=== PATIENT | female | born 1990 | race Caucasian/White ===

== ENCOUNTER 2016-07-29 11:47 | Emergency (ER) | payer OTHER, SELFPAY ==
[2016-07-29] MEDS ORDERED: Oseltamivir 75 MG CAP ONE (12:52)
--- NOTE | 2016-07-29 13:04 | ERRECORD ---
[facility] EMERGENCY RECORD HPI FLU-LIKE SYNDROME (12:14 JPIP) CHIEF COMPLAINT: Patient presents for evaluation of body aches, Patient presents for evaluation of fatigue, Patient presents for evaluation of fever, Patient presents for evaluation of upper respiratory infection. HISTORIAN: History provided by patient. LOCATION: Symptoms are generalized. QUALITY: Pain is dull in nature, described as aching. SEVERITY: Current severity of pain rated as 6/10. TIME COURSE: Sudden onset of symptoms, 2, days ago, There has been no change in the patient's symptoms over time, are constant. ASSOCIATED WITH: Associated with cough, No associated vomiting, son was recently diagnosed with flu. EXACERBATED BY: Patient's condition exacerbated by nothing. RELIEVED BY: Patient's condition relieved by nothing. IMMUNIZATION STATUS: Flu vaccine not up to date. ROS (12:15 JPIP) CONSTITUTIONAL: Historian reports chills, reports fatigue, reports fever, reports malaise. ENT: Historian reports rhinorrhea. CARDIOVASCULAR: Historian reports chest pain, pleuritic. RESPIRATORY: Historian reports cough, denies shortness of breath, denies wheezing. GENITOURINARY FEMALE: Historian reports . MUSCULOSKELETAL: Historian reports myalgias. SKIN: Historian denies rash, denies skin changes, denies skin lesions. NEUROLOGIC: Historian denies lethargy, denies mental status changes. NOTES: All systems reviewed, negative except as described above. PAST MEDICAL HISTORY MEDICAL HISTORY: No past medical history, Flu vaccine not up to date, Tetanus immunization up to date, Pneumococcal vaccine not up to date. (12:01 KMOR) FEMALE SURGICAL HISTORY: Patient has no surgical history,. (12:01 KMOR) PSYCHIATRIC HISTORY: No previous psychiatric history. (12:01 KMOR) SOCIAL HISTORY: Patient denies alcohol use, Patient denies drug use, Patient currently uses tobacco, smokes cigarettes, daily, Patient smokes 1/2 pack per day. (12:01 KMOR) NOTES: Nursing records reviewed, Medication list reviewed. (12:17 JPIP) KNOWN ALLERGIES morphine: Reaction: Hives &a-1R&a+25V*p+0X*v4992C*c202B*c15G*c2P*p-0X&a-25V&a+1R Name: Ronny Caballero : 1990 F26 MedRec: [id number] AcctNum: [id number] Prepared: ThuJul 29, 2016 13:01 by Interface Page 1 of 3 pMD [facility] EMERGENCY RECORD Penicillins CURRENT MEDICATIONS (12:23 KMOR) : TABLET : Strength - 28 mg iron-800 mcg : ORAL Patient Dose: Unknown. VITAL SIGNS (11:59 KMOR) VITAL SIGNS: BP: 126/61, Pulse: 93, Resp: 18, Temp: 98.5 (Oral), Pain: 6, O2 sat: 99 on Room Air, Time: 07/29/2016 11:59. PHYSICAL EXAM (12:16 JPIP) CONSTITUTIONAL: Vital signs reviewed, Patient afebrile, Pulse normal, Blood pressure normal, Respiratory rate normal, Patient appears, ill appearing, Patient alert and oriented to person, place and time. HEAD: Head exam included findings of head atraumatic, normocephalic. EYES: Eye exam included findings of eyelids normal to inspection, Conjunctiva normal, Sclera normal, no periorbital ecchymosis, no periorbital edema, no periorbital erythema. ENT: Ear exam normal, external ear normal, tympanic membranes normal, no foreign body, no drainage, no bleeding, Pharynx exam normal, not injected, no swelling, symmetrical, Uvula exam normal, midline, no edema, Mouth exam normal, mucous membranes moist. NECK: Neck exam included findings of normal range of motion, Trachea midline, no cervical adenopathy, no tenderness. RESPIRATORY CHEST: Respiratory exam included findings of no respiratory distress, Breath sounds clear, No wheezing, No rales, No rhonchi, Breath sounds not absent, Breath sounds not diminished. CARDIOVASCULAR: Cardiovascular exam included findings of heart rate regular rate and rhythm, Heart sounds normal. UPPER EXTREMITY: Upper extremity exam included findings of inspection normal, Range of motion normal. NEURO: [place] coma scale 15, Neuro exam findings include patient oriented to person, place and time, no focal motor deficits. SKIN: Skin exam included findings of skin warm, dry, and normal in color. LYMPHATIC: Lymphatic exam included findings of cervical nodes normal, Submandibular normal. PSYCHIATRIC: Normal affect. MEDICATION ADMINISTRATION SUMMARY Drug Name: Tamiflu, Dose Ordered: 75 mg, Route: Oral, Status: Given, Time: 12:50 07/29/2016, Detailed record available in Medication Service section. DOCTOR NOTES (12:45 JPIP) TEXT: Lab reported the flu swab as negative, however I &a-1R&a+25V*p+0X*m9970A*c202B*c15G*c2P*p-0X&a-25V&a+1R Name: Ronny Caballero : 1990 F26 MedRec: [id number] AcctNum: [id number] Prepared: ThuJul 29, 2016 13:01 by Interface Page 2 of 3 pMD [facility] EMERGENCY RECORD disagree with this. clinically patient has the flu. will treat as such. PROBLEM LIST No recorded problems DIAGNOSIS (12:51 JPIP) FINAL: PRIMARY: influenza. PRESCRIPTION (12:29 JPIP) Tamiflu: CAPSULE (HARD, SOFT, ETC.) : 75 mg : ORAL : Quantity: 1 Unit: cap(s) Route: ORAL Schedule: 2 times a day (before meals) Dispense: 10 May substitute. Refills: No Refills . NOTES: No refills. DISPOSITION PATIENT: Disposition Type: Discharge, Disposition: *Discharge Home, Condition: Good. (12:51 JPIP) Patient left the department. (12:57 KMOR) Fish: BEVERLY=DO Escalera Joseph KMOR=JAKE Crane, Karrie &a-1R&a+25V*p+0X*[id number]*c202B*c15G*c2P*p-0X&a-25V&a+1R Name: Ronny Caballero : 1990 F26 MedRec: [id number] AcctNum: [id number] Prepared: ThuJul 29, 2016 13:01 by Interface Page 3 of 3 pMD MTDD
--- NOTE | 2016-07-29 13:15 | PICIS ---
[facility] EMERGENCY RECORD TRIAGE (ThuJul 29, 2016 11:58 KMOR) TRIAGE NOTES: fever, body aches, cough x2 days, child at home flu positive. (ThuJul 29, 2016 11:58 KMOR) PATIENT: NAME: Ronny Caballero, AGE: 26, GENDER: female, : Thu1990, TIME OF GREET: ThuJul 29, 2016 11:47, PREFERRED LANGUAGE: Icelandic, ETHNICITY: Not or , ECODE BILLING MAP: [facility], SSN: [id number], Zip Code: [address], KG WEIGHT: 67.13, PHONE: , , , PERSON ID: [id number], PCP: MARISA Beck Kimberly. (ThuJul 29, 2016 11:58 KMOR) PAYMENT: [place] [employer]. (12:01) COMPLAINT: FLU LIKE SYMPTOMS. (ThuJul 29, 2016 11:58 KMOR) ADMISSION: URGENCY: 4 Non Urgent, [facility] SOURCE[facility], TRANSPORT: CAR, BED: ER -03. (ThuJul 29, 2016 11:58 KMOR) ASSESSMENT: Assessment: A&OX4. RR EVEN AND UNLABORED., Symptoms began 2 days ago. (12:01 KMOR) PAIN: Patient complains of pain described as, aching, on a scale 0-10 patient rates pain as 6, Location GENERALIZED. (12:01 KMOR) SIRS SCORING: Heart Rate 55-109 (0), Temp range 96.8-101.1 (0), respiratory rate 12-24 (0), Mental Status altered: no (0), Infection or Suspected Infection: No. (12:01 KMOR) TRIAGE SCREENING: Patient denies suicidal ideation, Patient denies presence of domestic violence. (12:01 KMOR) LMP: Last menstrual period: 02/21/2016, Estimated conception 03/06/2016, Estimated due date 11/27/2016, Estimated age 22 weeks, 5 days, , P: 5, AB: 0. (12:01 KMOR) PROVIDERS: TRIAGE NURSE: Karrie Crane RN. (ThuJul 29, 2016 11:58 KMOR) VITAL SIGNS: BP 126/61, Pulse 93, Resp 18, Temp 98.5, (Oral), Pain 6, O2 Sat 99, on Room Air, Time 07/29/2016 11:59. (11:59 KMOR) PREVIOUS VISIT ALLERGIES: morphine, Penicillins. (ThuJul 29, 2016 11:58 KMOR) morphine, Penicillins. (12:01 KMOR) KNOWN ALLERGIES morphine: Reaction: Hives Penicillins CURRENT MEDICATIONS (12:23 KMOR) : TABLET : Strength - 28 mg iron-800 mcg : ORAL Patient Dose: Unknown. VITAL SIGNS (11:59 KMOR) VITAL SIGNS: BP: 126/61, Pulse: 93, Resp: 18, Temp: 98.5 (Oral), Pain: 6, O2 sat: 99 on Room Air, Time: 07/29/2016 11:59. NURSING ASSESSMENT: ENT (12:21 KMOR) CONSTITUTIONAL: Patient arrives ambulatory, Gait steady, History &a-1R&a+25V*p+0X*j0518C*c202B*c15G*c2P*p-0X&a-25V&a+1R Name: Ronny Caballero : 1990 F26 MedRec: [id number] AcctNum: [id number] Prepared: ThuJul 29, 2016 13:09 by Interface Page 1 of 5 pMD [facility] EMERGENCY RECORD obtained from patient, Patient appears comfortable, Patient cooperative, Patient alert, Oriented to person, place and time, Skin warm, Skin dry, Skin normal in color, Mucous membranes pink, Mucous membranes moist, Patient is well-groomed, Patient complains of Flu like symptoms, Patient reports bodyaches, congestion, fever, and sore throat x 3 days, Reports child at home sick with flu. PAIN: aching pain, generalized, on a scale 0-10 patient rates pain as 6. ENT: Ear assessment findings include ear normal to inspection, Nasal assessment findings include nose normal to inspection, Sinuses normal, Nasal mucosa normal, Discharge, thick, from bilateral nare, Congestion, bilaterally, Mouth and throat assessment findings include mouth inspection normal, Uvula normal, Tonsils normal, Mucous membranes pink, and moist, Able to swallow, Speech normal, Associated with fever, Maximum temperature (degree F) 103, orally. RESPIRATORY/CHEST: Breath sounds clear, Respiratory assessment findings include respiratory effort easy, Respirations regular, Conversing normally, Neck and chest exam findings include trachea midline, Chest expansion equal, Chest movement symmetrical, no signs of distress, Associated with cough, loose, Associated with fever, Maximum temperature 103, oral. NOTES: Patient tolerated procedure well. NURSING PROCEDURE: DISCHARGE NOTE (12:56 KMOR) DISCHARGE: Patient discharged to home, ambulating without assistance, driving self, unaccompanied, Summary of Care printed/ provided, Transition record given to patient, Discharge instructions given to patient, Simple or moderate discharge teaching performed, by JAKE Yoon, Discharge instructions and follow up reviewed with patient. Pt ambulatory to discharge desk., Prescriptions given and instructions on side effects given, Name of prescription(s) given: tamiflu, Above person(s) verbalized understanding of discharge instructions and follow-up care. BELONGINGS: Belongings remain with patient, Valuables remain with patient. NURSING PROCEDURE: ENT (12:23 KMOR) PATIENT IDENTIFIER: Patient actively involved in identification process, Patient's identity verified by patient stating name, Patient's identity verified by patient stating date. ENT: Nasal swab collected, labeled in the presence of the patient and sent to lab for testing of, influenza A, influenza B, collected by JAKE Yoon. NOTES: Patient tolerated procedure well. ORDER DETAILS &a-1R&a+25V*p+0X*n6406T*c202B*c15G*c2P*p-0X&a-25V&a+1R Name: Ronny Caballero : 1990 F26 MedRec: [id number] AcctNum: [id number] Prepared: ThuJul 29, 2016 13:09 by Interface Page 2 of 5 pMD [facility] EMERGENCY RECORD Order Name: Influenza A&B Ag Screen, Status: Active, Time: 12:01 07/29/2016, User: BEVERLY, - Ordered for: DO Escalera Joseph, - Entered by: DO Escalera Joseph - ThuJul 29, 2016 12:01, - Quantity: 1. MEDICATION ADMINISTRATION SUMMARY Drug Name: Tamiflu, Dose Ordered: 75 mg, Route: Oral, Status: Given, Time: 12:50 07/29/2016, Detailed record available in Medication Service section. MEDICATION SERVICE (12:50 JPIP) Tamiflu: Order: Tamiflu (oseltamivir phosphate) - Dose: 75 mg : Oral Schedule: Now Ordered by: Jose Luis Escalera DO Entered by: Jose Luis Escalera DO ThuJul 29, 2016 12:50 , Acknowledged by: Karrie Crane RN ThuJul 29, 2016 12:52 Documented as given by: Karrie Crane RN ThuJul 29, 2016 12:50 Patient, Medication, Dose, Route and Time verified prior to administration. Amount given: 75mg, Site: Medication administered P.O., Correct patient, time, route, dose and medication confirmed prior to administration, Patient advised of actions and side-effects prior to administration, Allergies confirmed and medications reviewed prior to administration, Patient in position of comfort, Side rails up, Cart in lowest position, Family at bedside. HPI FLU-LIKE SYNDROME (12:14 JPIP) CHIEF COMPLAINT: Patient presents for evaluation of body aches, Patient presents for evaluation of fatigue, Patient presents for evaluation of fever, Patient presents for evaluation of upper respiratory infection. HISTORIAN: History provided by patient. LOCATION: Symptoms are generalized. QUALITY: Pain is dull in nature, described as aching. SEVERITY: Current severity of pain rated as 6/10. TIME COURSE: Sudden onset of symptoms, 2, days ago, There has been no change in the patient's symptoms over time, are constant. ASSOCIATED WITH: Associated with cough, No associated vomiting, son was recently diagnosed with flu. EXACERBATED BY: Patient's condition exacerbated by nothing. RELIEVED BY: Patient's condition relieved by nothing. IMMUNIZATION STATUS: Flu vaccine not up to date. ROS (12:15 JPIP) CONSTITUTIONAL: Historian reports chills, reports fatigue, reports fever, reports malaise. &a-1R&a+25V*p+0X*g2293C*c202B*c15G*c2P*p-0X&a-25V&a+1R Name: Ronny Caballero : 1990 F26 MedRec: [id number] AcctNum: [id number] Prepared: ThuJul 29, 2016 13:09 by Interface Page 3 of 5 pMD [facility] EMERGENCY RECORD ENT: Historian reports rhinorrhea. CARDIOVASCULAR: Historian reports chest pain, pleuritic. RESPIRATORY: Historian reports cough, denies shortness of breath, denies wheezing. GENITOURINARY FEMALE: Historian reports . MUSCULOSKELETAL: Historian reports myalgias. SKIN: Historian denies rash, denies skin changes, denies skin lesions. NEUROLOGIC: Historian denies lethargy, denies mental status changes. NOTES: All systems reviewed, negative except as described above. PAST MEDICAL HISTORY MEDICAL HISTORY: No past medical history, Flu vaccine not up to date, Tetanus immunization up to date, Pneumococcal vaccine not up to date. (12:01 KMOR) FEMALE SURGICAL HISTORY: Patient has no surgical history,. (12:01 KMOR) PSYCHIATRIC HISTORY: No previous psychiatric history. (12:01 KMOR) SOCIAL HISTORY: Patient denies alcohol use, Patient denies drug use, Patient currently uses tobacco, smokes cigarettes, daily, Patient smokes 1/2 pack per day. (12:01 KMOR) NOTES: Nursing records reviewed, Medication list reviewed. (12:17 JPIP) PHYSICAL EXAM (12:16 JPIP) CONSTITUTIONAL: Vital signs reviewed, Patient afebrile, Pulse normal, Blood pressure normal, Respiratory rate normal, Patient appears, ill appearing, Patient alert and oriented to person, place and time. HEAD: Head exam included findings of head atraumatic, normocephalic. EYES: Eye exam included findings of eyelids normal to inspection, Conjunctiva normal, Sclera normal, no periorbital ecchymosis, no periorbital edema, no periorbital erythema. ENT: Ear exam normal, external ear normal, tympanic membranes normal, no foreign body, no drainage, no bleeding, Pharynx exam normal, not injected, no swelling, symmetrical, Uvula exam normal, midline, no edema, Mouth exam normal, mucous membranes moist. NECK: Neck exam included findings of normal range of motion, Trachea midline, no cervical adenopathy, no tenderness. RESPIRATORY CHEST: Respiratory exam included findings of no respiratory distress, Breath sounds clear, No wheezing, No rales, No rhonchi, Breath sounds not absent, Breath sounds not diminished. CARDIOVASCULAR: Cardiovascular exam included findings of heart rate regular rate and rhythm, Heart sounds normal. UPPER EXTREMITY: Upper extremity exam included findings of inspection normal, Range of motion normal. &a-1R&a+25V*p+0X*t8730S*c202B*c15G*c2P*p-0X&a-25V&a+1R Name: Ronny Caballero : 1990 F26 MedRec: [id number] AcctNum: [id number] Prepared: ThuJul 29, 2016 13:09 by Interface Page 4 of 5 pMD [facility] EMERGENCY RECORD NEURO: [place] coma scale 15, Neuro exam findings include patient oriented to person, place and time, no focal motor deficits. SKIN: Skin exam included findings of skin warm, dry, and normal in color. LYMPHATIC: Lymphatic exam included findings of cervical nodes normal, Submandibular normal. PSYCHIATRIC: Normal affect. LAB INTERPRETATION (13:04 JPIP) INTERPRETATION: Influenza. EVENTS TRANSFER: Triage to Emergency Emergency Room -03. (ThuJul 29, 2016 11:58 KMOR) Removed from Emergency Emergency Room -03. (12:57 KMOR) O2SAT INTERPRETATION (12:14 JPIP) O2SAT: Single pulse oximetry, Oxygen saturation 99%, on room air, Oxygen saturation interpretation: Normal, No intervention required. PROBLEM LIST No recorded problems DIAGNOSIS (12:51 JPIP) FINAL: PRIMARY: influenza. DISPOSITION PATIENT: Disposition Type: Discharge, Disposition: *Discharge Home, Condition: Good. (12:51 JPIP) Patient left the department. (12:57 KMOR) INSTRUCTION (12:44 JPIP) DISCHARGE: INFLUENZA (ADULT). FO[facility]UP: [facility], [facility], [address] [place] [id number], . SPECIAL: Follow up with Primary Care Physician within 72 hours Finish all your antibiotics Take acetaminophen for pain. PRESCRIPTION (12:29 JPIP) Tamiflu: CAPSULE (HARD, SOFT, ETC.) : 75 mg : ORAL : Quantity: 1 Unit: cap(s) Route: ORAL Schedule: 2 times a day (before meals) Dispense: 10 May substitute. Refills: No Refills . NOTES: No refills. Fish: BEVERLY=DO Escalera Joseph KMOR=JAKE Crane, Karrie &a-1R&a+25V*p+0X*n3024D*c202B*c15G*c2P*p-0X&a-25V&a+1R Name: Ronny Caballero : 1990 F26 MedRec: [id number] AcctNum: [id number] Prepared: Kavon Jul 29, 2016 13:09 by Interface Page 5 of 5 pMD MTDD
== END 2016-07-29 12:51 | disposition home or self-care (01) ==
LOC: BURERS 11:47
DX: O99.512 Diseases of the respiratory system complicating pregnancy, second trimester (principal); J11.1 Influenza due to unidentified influenza virus with other respiratory manifestations; O99.332 Smoking (tobacco) complicating pregnancy, second trimester
CPT/HCPCS: 99283

== ENCOUNTER 2017-01-25 19:35 | Emergency (ER) | payer OTHER ==
[2017-01-25] MEDS ORDERED: HYDROcodone/Acetaminophen 5/325 mg Tablet ONE (19:45)
[2017-01-25] MEDS ORDERED: Ketorolac Tromethamine 30 MG/ML VIAL ONE (21:02)
--- NOTE | 2017-01-25 22:55 | CT ---
CT OF THE BRAIN WITHOUT CONTRAST: Date: 01-25-17 Comparison: 08-08-07 FINDINGS: The ventricles remain normal in size and show no shift. No intracranial bleeding or extraaxial hemat chastity was seen. There is no sign of stroke, mass, or edema. A soft tissue hematoma and laceration is s een on the occipital portion of the scalp to the left of midline. The underlying calvarium appears i ntact. No skull fractures were seen. There is no air fluid level in the sphenoid sinus. IMPRESSION: No acute intracranial findings. POS: HOME
--- NOTE | 2017-01-25 23:03 | CT ---
CT OF THE CERVICAL SPINE: Date: 01-25-17 Technique: Spiral CT of the cervical spine was performed for evaluation following trauma. Axial slic es were acquired and then coronal and sagittal reconstructions were done. FINDINGS: There is loss of the normal cervical lordosis which is most likely due to muscle spasm. No fracture, dislocation, or acute bony change was seen. All vertebrae appear intact. There is no foraminal or c entral canal stenosis. While demonstration of the discs themselves is somewhat low sensitivity on th is study, no large disc protrusion was appreciated. The surrounding soft tissues were normal in thic kness. The C1-2 dens distance is normal. IMPRESSION: Loss of normal cervical lordosis. Exam otherwise unremarkable. POS: HOME
== END 2017-01-25 22:08 | disposition home or self-care (01) ==
LOC: BURERS 19:35
DX: S01.01XA Laceration without foreign body of scalp, initial encounter (principal); S50.312A Abrasion of left elbow, initial encounter; F17.210 Nicotine dependence, cigarettes, uncomplicated; V80.010A Animal-rider injured by fall from or being thrown from horse in noncollision accident, initial encounter
CPT/HCPCS: 12002; 70450; 72125; 96372; J1885

== ENCOUNTER 2017-02-01 19:38 | Emergency (ER) | payer OTHER | END 2017-02-01 19:55 | disposition home or self-care (01) | LOC: BURERS 19:38 | DX: S01.01XD Laceration without foreign body of scalp, subsequent encounter (principal); F17.210 Nicotine dependence, cigarettes, uncomplicated ==

== ENCOUNTER 2017-03-05 09:29 | Emergency (ER) | payer OTHER, SELFPAY ==
[2017-03-05] MEDS ORDERED: Bacitracin Zinc 1 Packet ONE (09:53)
== END 2017-03-05 10:00 | disposition home or self-care (01) ==
LOC: BURERS 09:29
DX: S61.216A Laceration without foreign body of right little finger without damage to nail, initial encounter (principal); F17.210 Nicotine dependence, cigarettes, uncomplicated; W26.0XXA Contact with knife, initial encounter; Y93.G1 Activity, food preparation and clean up; Y92.9 Unspecified place or not applicable
CPT/HCPCS: 12001

== ENCOUNTER 2018-11-16 08:53 | Emergency (ER) | payer SELFPAY | END 2018-11-16 09:24 | disposition home or self-care (01) | LOC: BURERS 08:53 | DX: N61.1 Abscess of the breast and nipple (principal); F17.210 Nicotine dependence, cigarettes, uncomplicated | CPT/HCPCS: 99282 ==

== ENCOUNTER 2019-03-21 10:00 | Emergency (ER) | payer SELFPAY | END 2019-03-21 10:17 | disposition home or self-care (01) | LOC: BURERS 10:00 | DX: J20.8 Acute bronchitis due to other specified organisms (principal); B97.89 Other viral agents as the cause of diseases classified elsewhere; F17.210 Nicotine dependence, cigarettes, uncomplicated | CPT/HCPCS: 99281 ==

== ENCOUNTER 2019-06-09 08:52 | Emergency (ER) | payer SELFPAY ==
[2019-06-09] MEDS ORDERED: Ondansetron ODT 4 MG TAB ONE (09:19)
[2019-06-09 09:31] LABS: Bilirubin Negative (Negative); Blood, Urine Trace (Negative); Clarity Cloudy (Clear); Glucose, Urine (Dipstick) Negative (Negative); Leukocyte Small (Negative); Nitrite Negative (Negative); Protein, Urine (Dipstick) 30 mg/dL (Neg-Trace)
[2019-06-09 09:32] LABS: Bacteria/HPF 2+ HPF (None Seen); Epithelial Cast None Seen LPF (None Seen); Squamous Epithelial 21-50 HPF (0-3)
[2019-06-09 09:33] LABS: Pregnancy Test - Urine (BHCG) Negative (Negative); Pregu Control Background? CLEAR/WHITE (CLR/WHITE); Pregu Control Bar Appear? YES (CONTROL BAR); Specific Gravity 1.015 (1.002-1.036)
== END 2019-06-09 09:48 | disposition home or self-care (01) ==
LOC: BURERS 08:52
DX: A08.4 Viral intestinal infection, unspecified (principal); F17.210 Nicotine dependence, cigarettes, uncomplicated
CPT/HCPCS: 81003; 81015; 81025; 87086; 99284; Q0162

== ENCOUNTER 2019-07-12 07:32 | Emergency (ER) | payer SELFPAY | END 2019-07-12 08:04 | disposition home or self-care (01) | LOC: BURERS 07:32 | DX: L02.214 Cutaneous abscess of groin (principal); F17.210 Nicotine dependence, cigarettes, uncomplicated | CPT/HCPCS: 99283 ==

== ENCOUNTER 2020-01-05 08:34 | Emergency (ER) | payer SELFPAY ==
[2020-01-05] MEDS ORDERED: Lidocaine 1% w/Epinephrine 1:100K 20 ML VIAL ONE (09:19)
[2020-01-05 09:23] LABS: Bilirubin Negative (Negative); Blood, Urine Moderate (Negative); Clarity Cloudy (Clear); Glucose, Urine (Dipstick) Negative (Negative); Ketone, Urine Trace mg/dL (Negative); Leukocyte Large (Negative); Nitrite Negative (Negative); Protein, Urine (Dipstick) 30 mg/dL (Neg-Trace); Specific Gravity, Urine 1.025 (1.005-1.030); Urobilinogen 0.2 mg/dL (Less than 2)
[2020-01-05 09:28] LABS: Pregnancy Test - Urine (BHCG) Negative (Negative); Pregu Control Background? CLEAR/WHITE (CLR/WHITE); Pregu Control Bar Appear? YES (CONTROL BAR); Specific Gravity 1.025 (1.002-1.036)
[2020-01-05 09:34] LABS: Bacteria/HPF 1+ HPF (None Seen); Transitional Epithelial 0-3 HPF (None Seen); WBC/HPF Greater Than 50 HPF (0-3)
[2020-01-05] MEDS ORDERED: Sulfameth/Trimethoprim DS 800-160mg TAB ONE (09:59)
== END 2020-01-05 10:03 | disposition home or self-care (01) ==
LOC: BURERS 08:34
DX: L02.214 Cutaneous abscess of groin (principal); N39.0 Urinary tract infection, site not specified; F17.210 Nicotine dependence, cigarettes, uncomplicated; Z79.899 Other long term (current) drug therapy
CPT/HCPCS: 10060; 81003; 81015; 81025; 87086

== ENCOUNTER 2020-01-07 09:26 | Emergency (ER) | payer SELFPAY | END 2020-01-07 09:54 | disposition home or self-care (01) | LOC: BURERS 09:26 | DX: Z48.817 Encounter for surgical aftercare following surgery on the skin and subcutaneous tissue (principal); F17.210 Nicotine dependence, cigarettes, uncomplicated; Z79.899 Other long term (current) drug therapy | CPT/HCPCS: 99282 ==

== ENCOUNTER 2020-02-20 07:41 | Emergency (ER) | payer SELFPAY | END 2020-02-20 08:08 | disposition home or self-care (01) | LOC: BURERS 07:41 | DX: L01.00 Impetigo, unspecified (principal); F17.210 Nicotine dependence, cigarettes, uncomplicated | CPT/HCPCS: 99282 ==

== ENCOUNTER 2020-06-14 23:05 | Emergency (ER) | payer SELFPAY ==
[2020-06-15 22:07] LABS: SARS-CoV-2 MS2 Positive; SARS-CoV-2 N Gene Negative; SARS-CoV-2 S Gene Negative; SARS-CoV-2 by NAA Not Detected (NotDetected); SARS-CoV-2 orf1ab Negative
== END 2020-06-15 00:20 | disposition home or self-care (01) ==
LOC: BURERS 23:05
DX: J02.9 Acute pharyngitis, unspecified (principal); Z20.828 Contact with and (suspected) exposure to other viral communicable diseases; F17.290 Nicotine dependence, other tobacco product, uncomplicated
CPT/HCPCS: 87081; 87430; 87635; 99283; U0003

== ENCOUNTER 2020-10-14 14:28 | Emergency (ER) | payer OTHER, SELFPAY ==
[2020-10-14] MEDS ORDERED: Boostrix 0.5 ML (Tdap) VIAL ONE (14:39)
[2020-10-14] MEDS ORDERED: traMADol HCl 50 MG TAB ONE (15:30)
[2020-10-14] MEDS ORDERED: CEFAZOLIN 1 GM VIAL ONE (15:37)
[2020-10-14] MEDS ORDERED: Sodium Chloride 0.9% 100 ML ONE (15:38)
== END 2020-10-14 16:05 | disposition short-term general hospital (02) ==
LOC: BURERS 14:28
DX: S91.321A Laceration with foreign body, right foot, initial encounter (principal); W25.XXXA Contact with sharp glass, initial encounter; Z23 Encounter for immunization; F17.210 Nicotine dependence, cigarettes, uncomplicated
CPT/HCPCS: 90471; 90715; 96365; J0690; J3490

== ENCOUNTER 2021-04-25 09:01 | Emergency (ER) | payer SELFPAY ==
[2021-04-25] MEDS ORDERED: Ibuprofen 800 MG TAB ONE (09:21)
== END 2021-04-25 09:55 | disposition home or self-care (01) ==
LOC: BURERS 09:01
DX: S90.31XA Contusion of right foot, initial encounter (principal); F17.210 Nicotine dependence, cigarettes, uncomplicated; W22.8XXA Striking against or struck by other objects, initial encounter

== ENCOUNTER 2021-05-09 15:03 | Emergency (ER) | payer SELFPAY ==
[2021-05-09 15:40] LABS: Bilirubin Moderate (Negative); Blood, Urine Large (Negative); Clarity Turbid (Clear); Glucose, Urine (Dipstick) Negative (Negative); Ketone, Urine > or equal to 80 mg/dL (Negative); Leukocyte Large (Negative); Nitrite Negative (Negative); Protein, Urine (Dipstick) 100 mg/dL (Neg-Trace); Specific Gravity, Urine 1.025 (1.005-1.030); pH, Urine 6.5 (5.0-9.0)
[2021-05-09 15:43] LABS: Bacteria/HPF 3+ HPF (None Seen); RBC/HPF 0-3 HPF (0-3); Sperm/HPF 1+ HPF (None Seen); WBC/HPF Greater Than 50 HPF (0-3)
[2021-05-09 15:44] LABS: Mucous/LPF 1+ LPF (<2+); Pregnancy Test - Urine (BHCG) Negative (Negative); Pregu Control Background? CLEAR/WHITE (CLR/WHITE); Pregu Control Bar Appear? YES (CONTROL BAR); Specific Gravity 1.025 (1.002-1.036)
[2021-05-09 15:50] LABS: Hemoglobin 15.3 g/dL (12.0-16.0); Mean Corpuscular HGB CONC 34.1 g/dL (32.0-36.0); Mean Corpuscular Hemoglobin 34.4 pg (27.0-31.0); Mean Platelet Volume 8.9 fL (7.4-10.4); Platelet Count 229 thou/uL (130-400); RBC Distribution Width 11.1 % (11.5-14.5); Red Blood Cell (RBC) Count 4.44 mill/uL (4.20-5.40); White Blood Cell (WBC) Count 16.1 thou/uL (4.8-10.8)
[2021-05-09 15:51] LABS: Anion Gap 16 mmol/L (10-20); BUN (Urea Nitrogen) 8 mg/dL (7.0-18.7); Carbon Dioxide 24 mmol/L (22-29); Chloride 99 mmol/L (98-107); Potassium 3.3 mmol/L (3.5-5.1); Sodium 136 mmol/L (136-145)
[2021-05-09 15:52] LABS: ALT (SGPT) 16 U/L (8-55); AST (SGOT) 14 U/L (5-34); Albumin 4.4 g/dL (3.5-5.0); Alkaline Phosphatase 77 U/L (40-110); Bilirubin, Total 1.9 mg/dL (0.2-1.2); Calc. Creatinine Clearance 0 mL/min (70-130); Calcium 9.9 mg/dL (7.8-10.44); Globulin 3.4 g/dL (2.4-3.5); Glucose 102 mg/dL (70-105); Lipase 5 U/L (8-78); Protein, Total 7.8 g/dL (6.0-8.3)
[2021-05-09 15:55] LABS: Band 32 % (5-11); Eosinophils 1 % (0-10); Lymphocytes 11 % (21-51); MDiff Complete? YES; Macrocytosis SLIGHT = 6-15 cells (100X) (0-5/hpf); Monocytes 6 % (0-10); Neutrophil 48 % (42-75); Reactive Lymphocytes 2 % (0-10)
[2021-05-09] MEDS ORDERED: cefTRIAXone\\ROCEPHIN 1 GM VIAL ONE (16:32)
[2021-05-09] MEDS ORDERED: metroNIDAZOLE 250 MG TAB ONE (16:32)
[2021-05-09] MEDS ORDERED: Sodium Chloride 0.9% 100 ML ONE (16:32)
[2021-05-09] MEDS ORDERED: Doxycycline 100 MG CAP ONE (16:32)
== END 2021-05-09 17:07 | disposition home or self-care (01) ==
LOC: BURERS 15:03
DX: N70.03 Acute salpingitis and oophoritis (principal); F17.210 Nicotine dependence, cigarettes, uncomplicated
CPT/HCPCS: 80053; 81003; 81015; 81025; 83690; 84484; 85025; 87077; 87086; 87480; 87491; 87510; 87591; 87660; 93005; 94760; 96365; J0696; J3490

== ENCOUNTER 2023-12-07 13:07 | Emergency (ER) | payer OTHER, SELFPAY | END 2023-12-07 13:36 | disposition home or self-care (01) | LOC: BURERS 13:07 | DX: F41.9 Anxiety disorder, unspecified (principal); F17.210 Nicotine dependence, cigarettes, uncomplicated | CPT/HCPCS: 99283 ==

== ENCOUNTER 2024-02-28 11:52 | Emergency (ER) | payer OTHER ==
[2024-02-28] MEDS ORDERED: Ibuprofen 800 MG TAB ONE (12:15)
[2024-02-28 12:25] LABS: Bilirubin Negative (Negative); Blood, Urine Moderate (Negative); Clarity Cloudy (Clear); Glucose, Urine (Dipstick) Negative (Negative); Ketone, Urine Negative (Negative); Leukocyte Large (Negative); Nitrite Negative (Negative); Protein, Urine (Dipstick) Negative (Neg-Trace); Specific Gravity, Urine 1.015 (1.005-1.030); Urobilinogen 0.2 mg/dL (Less than 2)
[2024-02-28 12:29] LABS: Pregnancy Test - Urine (BHCG) Negative (Negative); Pregu Control Background? CLEAR/WHITE (CLR/WHITE); Pregu Control Bar Appear? YES (CONTROL BAR); Specific Gravity 1.015 (1.002-1.036)
[2024-02-28 12:30] LABS: Bacteria/HPF 3+ HPF (None Seen); CAUTI Indications for Culture Dysuria,urgency,freq; WBC/HPF Greater Than 50 HPF (0-3)
[2024-02-28 12:31] LABS: Urine Culture Reflex Yes Yes
[2024-02-28] MEDS ORDERED: Sulfameth/Trimethoprim DS 800-160mg TAB ONE (12:51)
== END 2024-02-28 13:31 | disposition home or self-care (01) ==
LOC: BURERS 11:52
DX: R30.0 Dysuria (principal); F17.210 Nicotine dependence, cigarettes, uncomplicated
CPT/HCPCS: 81001; 81025; 87081; 87086; 87430; 87804; 99283

== ENCOUNTER 2025-03-15 20:34 | Emergency (ER) | payer OTHER, SELFPAY | END 2025-03-15 22:00 | disposition home or self-care (01) | LOC: BURERS 20:34 | DX: S13.4XXA Sprain of ligaments of cervical spine, initial encounter (principal); M79.10 Myalgia, unspecified site; F17.210 Nicotine dependence, cigarettes, uncomplicated; V49.9XXA Car occupant (driver) (passenger) injured in unspecified traffic accident, initial encounter | CPT/HCPCS: 99283 ==